=== PATIENT | female | born 2005 | race Caucasian/White ===

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

== ENCOUNTER 2025-01-02 19:13 | Emergency (ER) | payer MEDICAID ==
[~2025-01-02] VITALS: Ht 162.6 cm; Wt 87.1 kg
[~2025-01-02 19:13] MED LIST: IBUP-1456 PO
[2025-01-02] MEDS ORDERED: PSEU120T2 PO (19:37)
[2025-01-02] MEDS ORDERED: METH4PAK PO (19:37)
[2025-01-02] MEDS ORDERED: AUG875T PO (19:37)
--- NOTE | 2025-01-02 19:39 | ED.PDOC ---
Eye-HPI HPI Comments 19-year-old female presents to the ED chief complaint sinus pressure and pain. Patient reports symptoms times 24 hours has been yellowish nasal discharge along with sinus pressure between her eyes radiating to both eyes. Rates pain 6/10 on pain scale pressure type pain. Reports chills but denies measurable fevers. Has not tried any [id number] medications for relief. She does state intermittent cough. Denies nausea, vomiting, difficulty breathing, shortness of breath, chest pain, diarrhea, recent ill contacts or recent travel. Chief Complaint: Sore Throat Time Seen by MD: 19:16 Primary Care Provider: UNKNOWN Reviewed Notes: Nurses Notes, Medications, Allergies Allergies: Coded Allergies: NO KNOWN ALLERGIES (Unverified , 10/17/23) Home Meds Active Scripts Ibuprofen (Ibuprofen) 800 Mg Tab, 1 TAB PO TID PRN, #30 TAB 0 Refills Prov:JULIANNA JANE 10/29/23 Information Source: Patient Mode of Arrival: Ambulatory Past Medical History PAST MEDICAL HISTORY: Asthma, DM Surgical History: Denies all surgeries WINDOWS SUPPORT ENGINEER History: No Pertinent WINDOWS SUPPORT ENGINEER History Family History Family History: Unknown Social History Smoker: Non-Smoker Alcohol: Denies ETOH Use Drugs: Denies Drug Use Lives In: Home All Other Systems: Reviewed and Negative (see hpi) Physical Exam General Appearance: No Apparent Distress, Normal HEENT: Pharynx Normal, Sinuses (Moderate tenderness palpated over ethmoid sinu s), TMs Normal Neck: Full Range of Motion, Non-Tender Respiratory: Lungs Clear, No Respiratory Distress, Normal Breath Sounds Cardiovascular: No Edema, No JVD, No Murmur, No Gallop, Normal Peripheral Pulses, Regular Rate/Rhythm Breast Exam: Deferred Gastrointestinal: No Organomegaly, Non Tender, No Pulsatile Mass, Normal Bowel Sounds, Soft Genitalia: Deferred Pelvic: Deferred Rectal: Deferred Extremities: Non-tender Musculoskeletal : Apperance: Normal Neurologic: Alert, No Motor Deficits, Normal Affect, Normal Mood, No Sensory Deficits Cerebellar Function: Normal Reflexes: NOT DONE Skin: Dry, Normal Color, Warm Lymphatic: No Adenopathy Was a procedure done? Was a procedure done?: No EENT DIFF Eye: Orbital Cellulits, Periorbital Cellulits, Retinal Artery Occlusion Ear: Otitis Externa, Otitis Media, Dental, Sinusitis Sore Throat: Peritonsillar Abscess, Peritonsillar Cellulitis, Pharyngitis, Viral Pharyngitis, URI X-Ray, Labs, Meds, VS Vital Signs Date Time Temp Pulse Resp B/P (MAP) Pulse Ox O2 Delivery O2 Flow Rate FiO2 01/02/25 19:15 98.4 114 18 151/86 98 98.4 X-Ray, Labs, Meds, VS Comment Likely viral at this time, script trial of Medrol Dosepak and Sudafed advised to take 1st script antibiotics advised to start the antibiotic if symptoms persist after taking the Medrol Dosepak and Sudafed. Advised to take medications as prescribed side effects discussed. Advised to rest increase p.o. fluids with electrolytes. Follow up with your PCP in 2-3 days as necessary. ER return precautions given patient indicates understanding agrees with discharge plan of care. Time of 1ST Reevaluation: 19:15 Reevaluation 1ST: Unchanged Time of 2ND Reevaluation: 19:35 Reevaluation 2ND: Improved Patient Education/Counseling: Diagnosis, Treatment, Prognosis, Need For Follow Up Family Education/Counseling: No Family Present SEPSIS Sepsis Screen Date sepsis recognized/suspect: Jan 02, 2025 Time Sepsis recognized/suspect: 1915 Recent Procedure: No On Antibiotic Therapy: No Respiratory Rate >20: No Heart Rate >90: Yes Temp<36 C (96.8 F) or >38.3 C: No SBP <90 or MAP <65 mmHG: No New Acute Mental Status Change: No Is the patient on CPAP, BIPAP,: No Vital Signs Date Time Temp Pulse Resp B/P (MAP) Pulse Ox O2 Delivery O2 Flow Rate FiO2 01/02/25 19:15 98.4 114 18 151/86 98 98.4 Departure 1 Departure Time of Disposition: 19:36 Impression: Primary Impression: Sinusitis, acute ethmoidal Qualified Codes: J01.20 - Acute ethmoidal sinusitis, unspecified Disposition: HOME / SELF CARE / HOMELESS Condition: Stable e-Prescriptions Pseudoephedrine (Sudafed 12 Hour) 120 Mg Tab 1 TAB PO BID PRN for 4 Days, #8 TAB Prov: KORIN GARNER [employer] 01/02/25 Amoxicillin & Pot Clavulanate (AUGMENTIN TABLET) 875 Mg Tb 875 MG PO BID for 7 Days, #14 TAB Prov: KORIN GARNER [employer] 01/02/25 Methylprednisolone (Medrol Dosepak) 4 Mg Deepak 4 MG PO UD for 6 Days, #21 TAB UAD Prov: KORIN GARNER 01/02/25 Discharged With: Self Critical Care Note Critical Care Time?: No Stability Stability form required: KORIN Neves Jan 02, 2025 19:38
[2025-01-02 19:45] VITALS: BP 151/86; PULSE 114; RESP 18; TEMP 98.4; O2SAT 98
== END 2025-01-02 19:47 | disposition home or self-care (01) ==
LOC: ER 19:13
DX: J01.20 Acute ethmoidal sinusitis, unspecified (principal); E11.9 Type 2 diabetes mellitus without complications; Z79.899 Other long term (current) drug therapy